=== PATIENT | female | born 2005 | race African-American/Black ===

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

== ENCOUNTER 2024-05-03 16:04 | Emergency (ER) | payer MEDICAID ==
[2024-05-03] VITALS (11 sets, daily range): BP systolic 118–133; BP diastolic 66–82
[~2024-05-03] VITALS: Ht 165.1 cm; Wt 60.0 kg
[~2024-05-03 16:04] MED LIST changes: +NAPROSYN250 MG PO
[2024-05-03] MEDS ORDERED: FAMOTIDINE 10MG/ML 2ML SDV IV ONE (16:30)
[2024-05-03] MEDS ORDERED: SODIUM CHLORIDE 0.9% 1,000 ML IV ONE (16:30)
[2024-05-03] MEDS ORDERED: ONDANSETRON HCl 4 MG/2 ML SDV IV ONE (16:30)
[2024-05-03 16:44] LABS: BASO% 0.1 % (0-3); IMMATURE GRANULOCYTES 0.5 % (0.0-5.0); LYMPH% 2.3 % (15-41); MEAN CELL VOLUME 85.4 fL CALC (80.0-100.0); MEAN CORPUSCULAR HGB 27.9 pG CALC (26.0-32.0); MEAN CORPUSCULAR HGB CONC 32.7 g/dL CAL (32.0-36.0); MONO% 3.8 % (2-13); NEUT# 11.15 thou/uL (2.00-7.15); NEUT% 93.3 % (42-76); RED BLOOD COUNT 5.12 mill/uL (4.20-5.60); RED CELL DISTRI WIDTH 13.2 % (11.5-15.5)
[2024-05-03 16:48] LABS: HEMATOCRIT 43.7 % (37.0-47.0); HEMOGLOBIN 14.3 g/dl (12.0-16.0)
[2024-05-03 16:52] LABS: URINE BLOOD DIPSTICK Negative (NEGATIVE); URINE COLOR Yellow; URINE GLUCOSE - DIPSTICK Negative (NEGATIVE); URINE KETONE 15 mg/dL (NEGATIVE); URINE LEUK ESTERASE Trace (NEGATIVE); URINE NITRITE - DIPSTICK Negative (Negative); URINE PH 8.5 (4.5-8.0); URINE PROTEIN - DIPSTICK 30 mg/dL (NEG-TRACE); URINE SPECIFIC GRAVITY 1.025
[2024-05-03 17:00] LABS: ALBUMIN 4.9 g/dL (3.2-5.0); BILIRUBIN, TOTAL 2.9 mg/dL (0.02-1.3); CREATININE 0.7 mg/dL (0.5-1.0); POTASSIUM 3.9 mmol/l (3.5-5.1); TOTAL PROTEIN 8.3 g/dL (6.3-8.2)
[2024-05-03 17:04] LABS: URINE RBC 0-2 RBC/hpf (0-5); URINE SQUAMOUS EPITHELIAL CELL MODERATE EPI/hpf (0-FEW)
[2024-05-03 17:05] LABS: URINE BACTERIA FEW hpf
[2024-05-03] MEDS ORDERED: PEPCID20 MG PO (18:37)
[2024-05-03] MEDS ORDERED: ZOFRAN4 MG/TAB PO (18:37)
== END 2024-05-03 18:57 | disposition home or self-care (01) ==
LOC: ED 16:04
PROVIDERS: Nurse Practitioner
DX: R11.2 Nausea with vomiting, unspecified (principal); R19.7 Diarrhea, unspecified